=== PATIENT | female | born 1975 | race Caucasian/White ===

== ENCOUNTER 2017-07-13 13:16 | Emergency (ER) | payer MEDICAID ==
[~2017-07-13] VITALS: Ht 160 cm; Wt 87.0 kg
[~2017-07-13 13:16] MED LIST: SACC250C PO
[2017-07-13] MEDS ORDERED: cyclobenzaprine 10mg tablet PO ONE (14:35)
[2017-07-13 15:48] VITALS: BP 132/95
== END 2017-07-13 15:45 | disposition home or self-care (01) ==
LOC: ER 13:17
DX: M25.512 Pain in left shoulder (principal); Z98.890 Other specified postprocedural states; Z91.040 Latex allergy status; Z88.8 Allergy status to other drugs, medicaments and biological substances; Z79.899 Other long term (current) drug therapy
CPT/HCPCS: 73030; 99284; A4565

== ENCOUNTER 2018-10-15 10:53 | Outpatient (CLI) | payer MEDICAID | END 2018-10-15 23:59 | disposition home or self-care (01) | LOC: RAD 10:53 | PROVIDERS: ATTEND Psychiatry & Neurology Neurology | DX: R20.2 Paresthesia of skin (principal); F41.9 Anxiety disorder, unspecified; R41.3 Other amnesia | CPT/HCPCS: 95816 ==

== ENCOUNTER 2024-02-02 09:33 | Outpatient (CLI) | payer MEDICARE, MEDICAID | END 2024-02-02 23:59 | disposition home or self-care (01) | LOC: RAD 09:33 | PROVIDERS: ATTEND General Practice | DX: M47.817 Spondylosis without myelopathy or radiculopathy, lumbosacral region (principal); K76.0 Fatty (change of) liver, not elsewhere classified; R10.84 Generalized abdominal pain; R14.0 Abdominal distension (gaseous); M54.9 Dorsalgia, unspecified; Z74.09 Other reduced mobility | CPT/HCPCS: 72148; 74181; 76700 ==

== ENCOUNTER 2024-02-11 20:33 | Emergency (ER) | payer MEDICARE, MEDICAID ==
[~2024-02-11] VITALS: Ht 167.6 cm; Wt 51.8 kg
[2024-02-11 21:50] LABS: BASOPHILS % (AUTO) 0.3 % (0-1); EOSINOPHILS # (AUTO) 0.4 X10'3 (0-0.9); EOSINOPHILS % (AUTO) 4.4 % (0-6); HEMATOCRIT 39.7 % (35.0-45.0); HEMOGLOBIN 13.5 g/dl (12.0-16.0); LYMPHOCYTES # (AUTO) 2.8 X10'3 (1.1-4.8); LYMPHOCYTES % (AUTO) 29.3 % (21-51); MEAN CORPUSCULAR HEMOGLOBIN 30.4 PG (27.0-31.0); MEAN CORPUSCULAR HGB CONC 34.1 g/dL (33.0-36.5); MEAN CORPUSCULAR VOLUME 89.2 FL (78-98); MEAN PLATELET VOLUME 7.4 FL (7.4-10.4); MONOCYTES # (AUTO) 0.6 X10'3 (0-0.9); MONOCYTES % (AUTO) 6.2 % (2-12); NEUTROPHILS # (AUTO) 5.7 X10'3 (1.8-7.7); NEUTROPHILS % (AUTO) 59.8 % (42-75); PLATELET COUNT 403 X10'3 (140-440); RED BLOOD COUNT 4.45 X10'6 (4.20-5.60); RED CELL DISTRIBUTION WIDTH 13.8 % (11.5-14.5); WHITE BLOOD COUNT 9.6 X10'3 (4.5-11.0)
[2024-02-11 22:01] LABS: ALANINE AMINOTRANSFERASE 45 U/L (12-78); ALBUMIN 3.6 G/DL (3.4-5.0); ALKALINE PHOSPHATASE 113 IU/L (46-116); ANION GAP 4 (8-16); ASPARTATE AMINO TRANSFERASE 26 U/L (10-37); BILIRUBIN,TOTAL 0.2 MG/DL (0.1-1.0); BLOOD UREA NITROGEN 23 MG/DL (7-18); BUN/CREATININE RATIO 18.9 (10.0-20.0); CALCIUM 8.9 MG/DL (8.5-10.1); CHLORIDE 107 MMOL/L (99-107); CREATININE 1.22 MG/DL (0.40-0.90); GLUCOSE 88 MG/DL (70-104); SODIUM 142 MMOL/L (135-145); TOTAL PROTEIN 7.3 G/DL (6.4-8.2); eCRCL 45 ML/MIN; eGFR 47 ML/MIN
[2024-02-11 22:03] LABS: LIPASE 32 U/L (16-77)
[2024-02-11 22:30] VITALS: BP 122/62; PULSE 74; RESP 14; TEMP 97.9; O2SAT 96
== END 2024-02-11 22:36 | disposition home or self-care (01) ==
LOC: ER 20:34
DX: R07.89 Other chest pain (principal); R05.9 Cough, unspecified; R06.02 Shortness of breath; R20.0 Anesthesia of skin; E07.9 Disorder of thyroid, unspecified; Z88.8 Allergy status to other drugs, medicaments and biological substances; Z88.1 Allergy status to other antibiotic agents; Z91.040 Latex allergy status; Z79.899 Other long term (current) drug therapy; Z98.890 Other specified postprocedural states
CPT/HCPCS: 36415; 71045; 80053; 83690; 84145; 84484; 85025; 93005; 99285

== ENCOUNTER 2024-03-03 08:49 | Outpatient (CLI) | payer MEDICARE, MEDICAID | END 2024-03-03 10:00 | disposition home or self-care (01) | LOC: MRI 08:49 | PROVIDERS: ATTEND General Practice | DX: N20.0 Calculus of kidney (principal); Z56.89 Other problems related to employment; Z77.098 Contact with and (suspected) exposure to other hazardous, chiefly nonmedicinal, chemicals; S06.9X0S Unspecified intracranial injury without loss of consciousness, sequela; M79.7 Fibromyalgia; R41.3 Other amnesia; R53.82 Chronic fatigue, unspecified; X58.XXXS Exposure to other specified factors, sequela | CPT/HCPCS: 70551; 76770 ==

== ENCOUNTER 2025-01-04 15:45 | Emergency (ER) | payer MEDICARE, MEDICAID ==
[~2025-01-04] VITALS: Ht 165.1 cm; Wt 70.9 kg
[2025-01-04] MEDS: LIDOcaine/epinephrine/tetracaine TOPICAL sol 3 ML syringe TOP ONE (17:23)
--- NOTE | 2025-01-04 17:53 | Physician Documentation ---
History of Present Illness ~ Chief Complaint: Bite-animal Stated Complaint: DOG BITE Time Seen by MD: 16:50 Primary Medical Doctor: MICHELLE BUSTILLO This is a 49-year-old female who presents with dog bites to bilateral hands and wrists, patient reports bites or worse on right hand. Patient reports dog was her neighbor's dog and a report has been filed with control. Patient reports no other acute symptoms or concerns including no other injuries. Patient is unsure of last Tdap. Tetanus within 5 years?: No Medication Reconciliation Allergies: Coded Allergies: latex (Verified Allergy, Mild, 07/13/17) Cephalexin Monohydrate (Verified Allergy, Unknown, 07/13/17) Metronidazole HCl (Verified Allergy, Unknown, 07/13/17) acetaminophen (Unverified Allergy, Unknown, HIVES, 07/13/17) citalopram hydrobromide (Verified Allergy, Unknown, 07/13/17) hydrocodone (Unverified Allergy, Unknown, HIVES, 07/13/17) medroxyprogesterone acetate (Verified Allergy, Unknown, 07/13/17) metronidazole (Verified Allergy, Unknown, 07/13/17) paroxetine HCl (Verified Allergy, Unknown, 07/13/17) promethazine HCl (Verified Allergy, Unknown, 07/13/17) sertraline HCl (Verified Allergy, Unknown, 07/13/17) sodium chloride (Verified Allergy, Unknown, 07/13/17) tramadol (Unverified Allergy, Unknown, RABAGO MUCOUS MEMBRANE HIVES, 07/13/17) venlafaxine HCl (Verified Allergy, Unknown, 07/13/17) Uncoded Allergies: ARTIFICIAL SWEETENERS (Allergy, Unknown, 08/18/14) ORTHOTRICYCLINE (Allergy, Unknown, 08/18/14) PRESEVATIVES (Allergy, Unknown, 08/18/14) Scheduled Amox Tr/Potassium Clavulanate (Augmentin 875-125 Tablet), 1 TAB PO Q12H Moxifloxacin HCl (Moxifloxacin HCl), 1 TAB PO DAILY Saccharomyces Boulardii (Florastor), 250 MG PO DAILY Past Medical History Past Medical History: Thyroid (unspecified) Past Surgical History: orthopedic surgeries Other Past Surgical History: D&C Alcohol Use: None Drug Use: none Lives with: Spouse Lives In: Home Review of Systems ROS As stated above in the HPI, otherwise all systems are reviewed and negative. Physical Exam Vital Signs: Temperature: 98.8, Source: Temporal, Heart Rate: 110, Respiratory Rate: 18, BP: 137/96, Pulse Oximetry: 98, Weight: 70.910 Oxygen Flow Rate: 0 Physical Exam VITALS: Reviewed and as above. GENERAL: Alert, nontoxic appearing, no apparent distress. RESPIRATORY: No increased work of breathing, no respiratory distress, speaking in full clear sentences MUSCULOSKELETAL: No obvious deformity to hands or fingers. Range of motion intact in bilateral hands and fingers. SKIN: Multiple abrasions to bilateral forearms and hands, 1 cm laceration to posterior aspect of right hand at base of 5th finger, 2 cm laceration of the posterior aspect of hand and web space between 5th and 4th finger not extending to palmar aspect. Single superficial puncture wound to posterior aspect of r ight hand at base of 3rd right finger. NEURO: Sensation intact in bilateral hands. Procedures Laceration/Wound Repair Laceration/Wound Repair : Location: Webspace of 4th and 5th right finger Length (cm): 2 Anesthesia: Lidocaine w/ Epi Volume Anesthetic (mls): 4 Prep: irrigated by nurse Debrided: minimal Undermining: none Margins: revised, other (Loose alignment) Foreign Body: not identified Repaired: skin Wound Repaired With: sutures Suture Size/Type: 4-0 Number of Superficial Sutures: 4 Layer Closure?: No Splint Applied?: Yes Sling Applied?: No Tolerated Procedure Well?: yes, no complications Progress Results/Orders Results/Orders Orders - BLAIR MUNOZ Laceration/I&D Tray Set Up (01/04/25 17:46) Hand, Complete (3vw Min) (01/04/25 18:13) Forearm,Incl.One Joint (01/04/25 18:52) Hand, Complete (3vw Min) (01/04/25 18:53) Dressing Orders (01/04/25 19:47) Ortho Orders (01/04/25 19:47) Completed Orders - BLAIR MUNOZ Lidocaine/Epi/Tetracaine Top (Lidocaine/ (01/04/25 16:55) Lidocaine 1% W/Epi 1:100,000 (Xylocaine (01/04/25 17:50) Tetanus/Pertuss/Diph Acell/Pf (Boostrix (01/04/25 17:50) Hand, Complete (3vw Min) (01/04/25 18:13) Forearm,Incl.One Joint (01/04/25 18:52) Hand, Complete (3vw Min) (01/04/25 18:53) Amox Tr/Potassium Clavulanate (Augmentin (01/04/25 19:50) Ibuprofen Tablet (Motrin Tablet) (01/04/25 19:50) Vital Signs 01/04/25 01/04/25 15:56 20:20 Temp 98.8 98.6 Pulse 110 99 Resp 18 18 B/P (MAP) 137/96 136/92 Pulse Ox 98 99 O2 Flow Rate 0 Medical Decision Making Findings This 49-year-old female presented with multiple abrasions to bilateral hands and wrists and lacerations to posterior aspect of her right hand due to a dog bite, dog is a domesticated dog and animal control is aware of the dog for monitoring therefore rabies prophylaxis is not indicated, patient unsure of Tdap status the refore Tdap updated. It was reassuring hands are neurovascularly intact and range of motion is intact with no evidence of tendon or deep tissue injury. X- ray of right hand did demonstrate evidence of small fracture at the base of right 5th metacarpal therefore referral to orthopedist indicated. Due to the location of laceration at webspace loose closure indicated. Remainder of physical exam was benign no other injuries demonstrated on exam or reported by patient. Patient to be discharged on course of oral antibiotics. Patient appropriate for outpatient follow up. Return to care precautions, home care instructions, and follow up instructions discussed with the patient who verbalized understanding. Differential Dx:Considerations: Include: Abrasion, Cellulitis, Contusion, Fracture, Hematoma, Laceration, Neurovascular injury, Retained foreign body Departure Time of Disposition: 19:42 Disposition: 01 HOME / SELF CARE / HOMELESS Impression: Primary Impression: Dog bite Qualified Codes: W54.0XXA - Bitten by dog, initial encounter Condition: Improved Discharge Instructions: Animal Bite, Adult Additional Instructions: Please take antibiotics as prescribed, please follow up with Dr. Abarca. Please follow up with your primary care provider in the next few days as well. You may use ibuprofen and or Tylenol as needed for pain. Please return to the emergency department for any new or worsening concerning symptoms including but not limited to worsening pain and swelling to the hand or if you develop a fever over 100.4 that does not lower with ibuprofen or Tylenol. Referrals: NO PRIMARY CARE PROVIDER (PCP) AARTI ABARCA Jr., MD Prescriptions Moxifloxacin HCl (Moxifloxacin HCl) 400 Mg Tablet 1 TAB PO DAILY for 10 Days, #10 TAB 0 Refills Prov: BLAIR MUNOZ 01/05/25 Amox Tr/Potassium Clavulanate (Augmentin 875-125 Tablet) 1 Each Tablet 1 TAB PO Q12H for 10 Days, #20 TAB Prov: BLAIR MUNOZ 01/05/25 Education Educated: Patient Educated regarding: diagnosis, treatment, prognosis, need for follow up Signature Scribe Signature: No Scribe Attestation: The note accurately reflects work and decisions made by me.TATE Romo 01/05/25 20:24 BLAIR MUNOZ Jan 04, 2025 17:53
[2025-01-04] MEDS: LIDOcaine 1% W/epiNEPHrine 1:100,000 20ml vial IJ ONE (18:07)
--- NOTE | 2025-01-04 18:27 | RADIOLOGY REPORT ---
EXAM: DI HAND, COMPLETE (3VW MIN) INDICATION: HAND PAIN RIGHT TECHNIQUE: 3 views of the right hand COMPARISON: None FINDINGS/IMPRESSION: Transversely oriented 5th metacarpal base fracture.
--- NOTE | 2025-01-04 19:04 | RADIOLOGY REPORT ---
EXAM: DI FOREARM,INCL.ONE JOINT INDICATION: Dog Bite LEFT TECHNIQUE: 2 views of the left forearm COMPARISON: None FINDINGS/IMPRESSION: No radiographic evidence of an acute osseous abnormality. There is no acute fracture, osseous malalig nment, or aggressive focal osseous lesion. No radiopaque foreign body.
--- NOTE | 2025-01-04 19:05 | RADIOLOGY REPORT ---
EXAM: DI HAND, COMPLETE (3VW MIN) INDICATION: Dog Bite LEFT TECHNIQUE: 3 views of the left hand COMPARISON: DI HAND, COMPLETE (3VW MIN) on DOS: 01/04/25 FINDINGS/IMPRESSION: No radiographic evidence of an acute osseous abnormality. There is no acute fracture, osseous malalig nment, or aggressive focal osseous lesion. No radiopaque foreign body.
[2025-01-04] MEDS ORDERED: AMOX-117 PO (19:44)
[2025-01-04] MEDS: ibuprofen tablet 400 MG TABLET PO ONE (20:06)
[2025-01-04] MEDS: TETanus/Pertussis (Acell)/Diphther VAC/PF (Tdap-Adult) 0.5ml syringe IMVAC ONE (20:06)
[2025-01-04] MEDS: amox tr/potassium clavulanate 875/125mg TAB PO ONE (20:16)
[2025-01-04 20:20] VITALS: BP 136/92; PULSE 99; RESP 18; TEMP 98.6; O2SAT 99
[2025-01-05] MEDS ORDERED: MOXI400T32 PO (20:22)
== END 2025-01-04 20:21 | disposition home or self-care (01) ==
LOC: ER 15:45
DX: S61.232A Puncture wound without foreign body of right middle finger without damage to nail, initial encounter (principal); Z88.1 Allergy status to other antibiotic agents; Z88.5 Allergy status to narcotic agent; Z91.040 Latex allergy status; W54.0XXA Bitten by dog, initial encounter; Y93.89 Activity, other specified; Y92.89 Other specified places as the place of occurrence of the external cause; Y99.8 Other external cause status
CPT/HCPCS: 12001; 73090; 73130; 99284; A6222; A6258; A6402; J3490; L3908; Z7610; A6449

== ENCOUNTER 2025-03-03 13:21 | Emergency (ER) | payer MEDICARE, MEDICAID ==
[~2025-03-03] VITALS: Ht 160 cm; Wt 87.0 kg
[~2025-03-03 13:21] MED LIST changes: +AMOX-117 PO; +MOXI400T32 PO
--- NOTE | 2025-03-03 14:04 | Physician Documentation ---
History of Present Illness ~ Chief Complaint: Flank Pain Stated Complaint: MULTIPLE MED COMPLAINTS Time Seen by MD: 14:31 Primary Medical Doctor: MICHELLE BUSTILLO This is a 49-year-old female who presents for bilateral flank pain for the past two weeks progressively worsening. Patient reports no fever. Patient has a multitude of vague longstanding medical concerns for which she rambles on about. Primarily she is concerned that she has stage IV CKD that has reportedly been getting better. She wonders if this may be contributory to her flank pain. Medication Reconciliation Allergies: Coded Allergies: latex (Verified Allergy, Mild, 03/03/25) Cephalexin Monohydrate (Verified Allergy, Unknown, 03/03/25) Metronidazole HCl (Verified Allergy, Unknown, 03/03/25) acetaminophen (Unverified Allergy, Unknown, HIVES, 03/03/25) citalopram hydrobromide (Verified Allergy, Unknown, 03/03/25) hydrocodone (Unverified Allergy, Unknown, HIVES, 03/03/25) medroxyprogesterone acetate (Verified Allergy, Unknown, 07/13/17) metronidazole (Verified Allergy, Unknown, 07/13/17) paroxetine HCl (Verified Allergy, Unknown, 07/13/17) promethazine HCl (Verified Allergy, Unknown, 07/13/17) sertraline HCl (Verified Allergy, Unknown, 07/13/17) sodium chloride (Verified Allergy, Unknown, 07/13/17) tramadol (Unverified Allergy, Unknown, RABAGO MUCOUS MEMBRANE HIVES, 07/13/17) venlafaxine HCl (Verified Allergy, Unknown, 07/13/17) Uncoded Allergies: ARTIFICIAL SWEETENERS (Allergy, Unknown, 08/18/14) ORTHOTRICYCLINE (Allergy, Unknown, 08/18/14) PRESEVATIVES (Allergy, Unknown, 08/18/14) Scheduled Amox Tr/Potassium Clavulanate (Augmentin 875-125 Tablet), 1 TAB PO Q12H Moxifloxacin HCl (Moxifloxacin HCl), 1 TAB PO DAILY Saccharomyces Boulardii (Florastor), 250 MG PO DAILY Past Medical History Past Medical History: Thyroid (unspecified) Past Surgical History: orthopedic surgeries Other Past Surgical History: D&C Alcohol Use: None Drug Use: none Lives with: Spouse Lives In: Home Review of Systems All Other Systems at this time: Reviewed and Negative ROS As stated above in the HPI, otherwise all systems are reviewed and negative. Constitutional: Reports: no symptoms reported Eyes: Reports: no symptoms reported ENT: Reports: no symptoms reported Respiratory: Reports: no symptoms reported Cardiovascular: Reports: no symptoms reported Gastrointestinal: Reports: no symptoms reported Genitourinary: Reports: other (CKD) Musculoskeletal: Reports: back pain Integumentary: Reports: no symptoms reported Allergic/Immunologic: Reports: no symptoms reported Hematologic/Lymphatic: Reports: no symptoms reported Endocrine: Reports: no symptoms reported Psychiatric: Reports: other (And she is) Physical Exam Vital Signs: Temperature: 97.3, Source: Temporal, Heart Rate: 76, Respiratory Rate: 18, BP: 146/92, Pulse Oximetry: 98, Weight: 87.000 Oxygen Flow Rate: 0 Physical Exam VITALS: Reviewed and as above. GENERAL: Alert, nontoxic appearing, no apparent distress. HEENT: RESPIRATORY: No increased work of breathing, no respiratory distress, speaking in full clear sentences CHEST: CV: BACK: GI: MUSCULOSKELETAL: SKIN: NEURO: PSYCH: Progress Results/Orders Results/Orders Orders - ASIF JACKSON PAC Ct Abdomen Pelvis (03/03/25 ) Completed Orders - ASIF JACKSON PAC Ct Abdomen Pelvis (03/03/25 ) Vital Signs 03/03/25 03/03/25 03/03/25 03/03/25 13:37 15:21 15:22 16:02 Temp 97.3 97.3 Pulse 76 64 71 Resp 18 16 15 B/P (MAP) 146/92 99/51 (67) 108/68 (81) Pulse Ox 98 97 97 O2 Flow Rate 0 0 0 03/03/25 16:41 Temp 97.3 Pulse 67 Resp 16 B/P (MAP) 109/67 Pulse Ox 100 Laboratory Tests Test 03/03/25 14:01 03/03/25 14:20 White Blood Count 10.1 Red Blood Count 4.77 Hemoglobin 14.2 Hematocrit 41.5 Mean Corpuscular Volume 87.1 Mean Corpuscular Hemoglobin 29.7 Mean Corpuscular Hemoglobin Concent 34.1 Red Cell Distribution Width 13.4 Platelet Count 406 Mean Platelet Volume 7.2 L Neutrophils (%) (Auto) 70.1 Lymphocytes (%) (Auto) 22.2 Monocytes (%) (Auto) 5.1 Eosinophils (%) (Auto) 2.2 Basophils (%) (Auto) 0.4 Neutrophils # (Auto) 7.1 Lymphocytes # (Auto) 2.2 Monocytes # (Auto) 0.5 Eosinophils # (Auto) 0.2 Basophils # (Auto) 0.0 CBC Comment Sodium Level 139 Potassium Level 3.9 Chloride Level 101 Carbon Dioxide Level 30.6 Anion Gap 7 L Blood Urea Nitrogen 17 Creatinine 0.83 Estimated GFR/1.73 m2 72 BUN/Creatinine Ratio 20.5 H Glucose Level 108 H Calcium Level 8.9 Total Bilirubin 0.2 Aspartate Amino Transf (AST/SGOT) 13 Alanine Aminotransferase (ALT/SGPT) 22 Alkaline Phosphatase 97 Total Protein 7.8 Albumin 3.9 Globulin 3.9 Albumin/Globulin Ratio 1.0 L Lipase 85 H Chemistry Comments Urine Specimen Description Cln catch midstream Urine Color Yellow Urine Clarity Clear Urine pH 6.0 Urine Specific [place] 1.015 Urine Protein Negative Urine Glucose (UA) Negative Urine Ketones Negative Urine Occult Blood Small Urine Nitrite Negative Urine Bilirubin Negative Urine Urobilinogen 0.2 Urine Leukocyte Esterase Negative Urine RBC 3-10 Urine WBC 0-4 Urine Squamous Epithelial Cells Few Urine Bacteria Few Urine Culture Indicated Not ind Volume Urine Centrifuged 10 ml Urine HCG, Qualitative Negative Urine Comment Medical Decision Making Findings MSE performed in triage and patient returned to ED lobby by nursing staff to await available ED room. CT imaging reveals large 14 mm calculus in the left kidney were requiring urology follow up. Mild to moderate hydro that is nonacute. Urine unremarkable for infection and no THOMAS. In fact your reported stage IV CKD he is not evident at all. Patient understands the discharge instructions to follow up with primary care. Discharged without an obstructive process. Diff Dx GI Bleed:Consideration: Include: Other (Noncontributory) Diff Dx Pain:Considerations: Include: Urinary obstruction, Urinary tract infection, Urolithiasis Diff Dx N/V/D:Considerations: Include: Renal failure, Urolithiasis, Urinary obstruction, UTI Diff Dx Rectal:Considerations: Include: Other (Contributory) Departure Disposition: 01 HOME / SELF CARE / HOMELESS Impression: Primary Impression: Calculus of kidney Condition: Stable Discharge Instructions: Renal Colic Additional Instructions: Please call the office of the Urology Clinic for follow up regarding your kidney stone. Please take Tylenol for discomfort. Labs obtained are reassuring. Referrals: NO PRIMARY CARE PROVIDER (PCP) NATALYA PRADO MD 1 week 14 mm Left renal calculus. Thank you for seeing [facility] ED Education Educated: Patient Educated regarding: diagnosis, treatment, prognosis, need for follow up (Urology) Signature Scribe Signature: . Attestation: . BLAIR MUNOZ Mar 03, 2025 14:04 ASIF JACKSON PAC Mar 03, 2025 16:31
[2025-03-03 14:23] LABS: MEAN PLATELET VOLUME 7.2 FL (7.4-10.4); RED CELL DISTRIBUTION WIDTH 13.4 % (11.5-14.5)
[2025-03-03 14:45] LABS: CREATININE 0.83 MG/DL (0.40-0.90); TOTAL CARBON DIOXIDE 30.6 MMOL/L (24-32); eCRCL 66 ML/MIN; eGFR 72 ML/MIN
[2025-03-03 15:11] LABS: LEUKOCYTE ESTERASE ,URINE NEGATIVE (Neg); NITRITES, URINE NEGATIVE (Neg); OCCULT BLOOD,URINE SMALL (Neg)
[2025-03-03 15:12] LABS: URINE HCG NEGATIVE (NEG)
[2025-03-03 15:15] LABS: UA COLLECTION TYPE CLN CATCH MIDSTREAM
[2025-03-03 15:26] LABS: SQUAMOUS EPITHELIAL CELL,UR FEW /LPF (FEW)
--- NOTE | 2025-03-03 16:10 | RADIOLOGY REPORT ---
Indication: r/o kidney stone Technique: CT axial images of the abdomen and pelvis are obtained without contrast. Coronal and sagittal reformats were obtained. Radiation Dose Information: CTDI volume is 24 mGy. Dose-length product is 1107 mGy*cm Comparison: None FINDINGS: There is limited interpretation of the abdomen and pelvis without administration of intravenous contrast. Lung bases demonstrate no pleural effusion Adrenal glands, spleen, pancreas and liver unremarkable in shape. No CT evidence for cholelithiasis. The right kidney demonstrates no hydronephrosis /nephrolithiasis. The left kidney demonstrates mild to left hydronephrosis secondary to a left renal pelvic calculus measuring 14 mm. Stomach is partially distended. Small bowel loops are normal in caliber. Moderate to large volume stool throughout the colon. Normal appendix. Bladder partially distended. No free pelvic fluid. No inguinal lymphadenopathy. No aggressive osseous process. Mild thoracolumbar degenerative disc disease. IMPRESSION: Limited evaluation without contrast. Mild 2 moderate left hydronephrosis secondary to a left renal pelvic calculus measuring 14 mm. Moderate to large volume stool throughout the colon. Other findings as described.
[2025-03-03 16:41] VITALS: BP 109/67; PULSE 67; RESP 16; TEMP 97.3; O2SAT 100
== END 2025-03-03 16:55 | disposition home or self-care (01) ==
LOC: ER 13:22
DX: N20.0 Calculus of kidney (principal); Z91.040 Latex allergy status; Z88.1 Allergy status to other antibiotic agents; Z88.5 Allergy status to narcotic agent; Z88.8 Allergy status to other drugs, medicaments and biological substances; Z79.899 Other long term (current) drug therapy; Z98.890 Other specified postprocedural states
CPT/HCPCS: 36415; 74176; 80053; 81001; 81025; 83690; 85025; 99284